=== PATIENT | male | born 1960 | race African-American/Black ===

== ENCOUNTER 2019-02-23 06:30 | Inpatient (IN) | payer BC ==
[2019-02-23 08:10] LABS: #Basophils 0.1 thou/uL (0.0-0.2); #Eosinphils 0.2 thou/uL (0.0-0.7); #Lymphocytes 1.8 thou/uL (1.20-3.40); #Monocytes 0.6 thou/uL (0.11-0.59); #Neutrophils 4.3 thou/uL (1.40-6.50); %Basophils 1.1 % (0.0-1.0); %Eosinophils 3.3 % (0.0-10.0); %Neutrophils 60.6 % (42.0-75.0); Hemoglobin 14.3 g/dL (14.0-18.0); Mean Corpuscular HGB CONC 33.9 g/dL (32.0-36.0); Mean Corpuscular Hemoglobin 30.7 pg (27.0-31.0); Mean Corpuscular Volume 90.6 fL (78.0-98.0); Mean Platelet Volume 7.4 fL (7.4-10.4); Platelet Count 257 thou/uL (130-400); RBC Distribution Width 11.1 % (11.5-14.5); Red Blood Cell (RBC) Count 4.67 mill/uL (4.70-6.10); White Blood Cell (WBC) Count 7.1 thou/uL (4.8-10.8)
[2019-02-23 08:23] LABS: Anion Gap 14 mmol/L (10-20); BUN (Urea Nitrogen) 16 mg/dL (8.4-25.7); Calc. Creatinine Clearance 188 mL/min (70-130); Calcium 9.4 mg/dL (7.8-10.44); Carbon Dioxide 25 mmol/L (22-29); Chloride 105 mmol/L (98-107); Estimated GFR-MDRD Greater than 90; Glucose 108 mg/dL (70-105); Potassium 4.3 mmol/L (3.5-5.1); Sodium 140 mmol/L (136-145)
[2019-02-23] MEDS ORDERED: Sodium Chloride 0.9% 10 ML ONE (08:44)
[2019-02-23] MEDS ORDERED: Fentanyl 100 MCG/2 ML VIAL ONE (09:03)
[2019-02-23] MEDS ORDERED: SUGAMMADEX SODIUM 200 MG/2 ML VIAL ONE (09:56)
[2019-02-23] MEDS ORDERED: SUGAMMADEX SODIUM 500 MG/5 ML VIAL ONE (09:57)
[2019-02-23] MEDS ORDERED: Promethazine HCl 25 MG/ML VIAL SLOW IVP PRN (10:25)
[2019-02-23] MEDS ORDERED: Meperidine HCl/PF 25 MG/ML VIAL SLOW IVP PRN (10:25)
[2019-02-23] MEDS ORDERED: HYDROmorphone 2 MG/ML VIAL SLOW IVP PRN (10:25)
[2019-02-23] MEDS ORDERED: Ondansetron HCl/PF 4 MG/2 ML Vial IVP PRN (10:25)
[2019-02-23] MEDS ORDERED: Lidocaine 1% PF 5 ML VIAL ONE (10:56)
[2019-02-23] MEDS ORDERED: PROPOFOL 200 MG/20 ML VIAL ONE (10:56)
[2019-02-23] MEDS ORDERED: Ondansetron PF 4 MG/2 ML Vial ONE (10:56)
[2019-02-23] MEDS ORDERED: Ketorolac Tromethamine 30 MG/ML VIAL ONE (10:56)
[2019-02-23] MEDS ORDERED: Rocuronium Bromide 10 MG/ML (10ML VIAL) ONE (10:56)
[2019-02-23] MEDS ORDERED: ePHEDrine/0.9% NaCl/PF SYRINGE 50 mg/10 ml ONE (10:56)
[2019-02-23] MEDS ORDERED: Dexamethasone 20 MG/5 ML VIAL ONE (10:56)
[2019-02-23] MEDS ORDERED: HYDROmorphone 2 MG/ML VIAL ONE (11:01)
[2019-02-23] MEDS ORDERED: Morphine 4 MG/ML VIAL SLOW IVP PRN (11:18)
[2019-02-23] MEDS ORDERED: HYDROcodone/Acetaminophen 10/325 mg Tablet PO PRN (11:18)
[2019-02-23] MEDS ORDERED: tiZANidine HCl 4 MG TAB PO PRN (11:18)
[2019-02-23] MEDS ORDERED: traMADol HCl 50 MG TAB PO PRN ×2 (11:18)
[2019-02-23] MEDS ORDERED: Milk Of Magnesia 30 ML UDCUP PO PRN (11:18)
[2019-02-23] MEDS ORDERED: Ondansetron PF 4 MG/2 ML Vial IM PRN (11:18)
[2019-02-23] MEDS ORDERED: diphenhydrAMINE 25 MG CAP PO PRN (11:18)
[2019-02-23] MEDS ORDERED: Promethazine 25 MG TAB PO PRN (11:18)
[2019-02-23] MEDS ORDERED: Promethazine HCl 12.5 MG SUPP PR PRN (11:18)
[2019-02-23] MEDS ORDERED: Mag-Al 1200 mg/1200 mg/30 ML UDCUP PO PRN (11:18)
[2019-02-23] MEDS ORDERED: Promethazine HCl 25 MG/ML VIAL IM PRN (11:18)
[2019-02-23] MEDS ORDERED: diphenhydrAMINE 50 MG/ML VIAL IVP PRN (11:18)
[2019-02-23] MEDS ORDERED: Morphine 2 MG/ML SYRINGE SLOW IVP PRN (11:19)
[2019-02-23] MEDS: HYDROcodone/Acetaminophen 10/325 mg Tablet PO PRN ×3 (13:31→22:34)
[2019-02-23] MEDS: Sodium Chloride 0.9% 1,000 ML IV SCH (13:32)
[2019-02-23 13:36] VITALS: BMI 39.2
--- NOTE | 2019-02-23 14:58 | OP ---
DATE OF PROCEDURE: 02/23/2019 SALESPERSON [employer]: Sarah Pedersen PA-C PROCEDURE PERFORMED: L4-L5 laminectomy, posterolateral arthrodesis, pedicle screw instrumentation, demineralized bone matrix and local morselized autograft, L4-L5. DESCRIPTION OF PROCEDURE: The patient was brought to the operating room and intubated. He was rolled in a prone position on gel-filled chest rolls. An incision was made exposing L4 and L5, and the level was confirmed by x-ray. We performed complete L5 and inferior L4 laminectomy, completely decompressing the neural elements. Next, pedicle screws were placed at right L4 and right L5 using lateral fluoroscopic guidance, and the position was confirmed by x-ray. The merlin was secured between the screws, connected by nuts, which were final tightened. The wound was then extensively irrigated, and MAC hemostasis was secured. A combination of demineralized bone matrix and local morselized autograft was laid over the lamina and posterolateral surfaces for the purpose of arthrodesis. Vancomycin powder was applied, and the wound was then closed in anatomic layers over drain. Job ID: [id number]
[2019-02-23] MEDS: CEFAZOLIN 2 GM in Premix Bag 1 BAG IVPB SCH ×2 (16:28→23:42)
[2019-02-24] MEDS: Sodium Chloride 0.9% 1,000 ML IV SCH ×2 (01:32→14:06)
[2019-02-24] MEDS: Tamsulosin HCl 0.4 MG CAP PO SCH (05:20)
[2019-02-24] MEDS: HYDROcodone/Acetaminophen 10/325 mg Tablet PO PRN ×4 (05:24→20:12)
[2019-02-24] MEDS: CEFAZOLIN 2 GM in Premix Bag 1 BAG IVPB SCH ×3 (07:49→23:55)
--- NOTE | 2019-02-24 08:47 | PRG ---
DATE OF SERVICE: 02/24/2019 SUBJECTIVE: The patient is a 58-year-old male, who underwent L4-L5 decompression and fusion on 02/23/2019. Following the surgery, he was transitioned to the Med/Surg floor, where his pain has been well controlled with p.o. medications. He is tolerating a regular diet, and he is voiding appropriately. He is currently postoperative day #1. He did have a JOSH output of 210 of serosanguineous fluid overnight. OBJECTIVE: GENERAL: On exam, this morning he is awake, alert, in no acute distress. He has free active range of motion of all extremities. No focal motor weakness. No incisional issues. Bandage is clean and dry. PLAN: We will continue to mobilize, monitor appropriately. Once the JOSH drain output trends down, I anticipate he will be able to go home in the next 1 to 2 days. I will call and check on JOSH output this afternoon. I anticipate he will need to stay additional night. Job ID: [id number]
[2019-02-25] MEDS: HYDROcodone/Acetaminophen 10/325 mg Tablet PO PRN ×3 (00:43→09:26)
[2019-02-25] MEDS: Sodium Chloride 0.9% 1,000 ML IV SCH ×2 (03:42→09:00)
[2019-02-25] MEDS: Tamsulosin HCl 0.4 MG CAP PO SCH (05:10)
[2019-02-25 08:10] VITALS: BP 109/69; TEMP 97.7
[2019-02-25] MEDS: CEFAZOLIN 2 GM in Premix Bag 1 BAG IVPB SCH (09:00)
--- NOTE | 2019-02-25 12:17 | DIS ---
DATE OF ADMISSION: 02/23/2019 DATE OF DISCHARGE: 02/25/2019 The patient is a 58-year-old male, who underwent L4-L5 decompression and fusion for lumbar stenosis and spondylolisthesis. Surgery date was 02/23/2019. Following the surgery, he was transitioned to the Med/Surg floor, where his pain was well controlled with p.o. medications, he was tolerating a regular diet, and he was voiding appropriately. He was ambulating up and down the hallways without any difficulty and not requiring any assistive devices. He did have a JOSH drain placed intraoperatively,, which trended down and was removed after postoperative day #2. The patient mobilized appropriately and was ready for discharge home on postoperative day #2. I discussed home care and precautions and will follow up with the patient in 2 weeks. He was provided with scripts for [facility], Zanaflex, and Keflex. Job ID: [id number]
--- NOTE | 2019-02-25 18:44 | EKG ---
Test Reason : PREOP Blood Pressure : / mmHG Vent. Rate : 061 BPM Atrial Rate : 061 BPM P-R Int : 172 ms QRS Dur : 108 ms QT Int : 408 ms P-R-T Axes : 053 -30 003 degrees QTc Int : 410 ms Normal sinus rhythm Left axis deviation Nonspecific ST and T wave abnormality Abnormal ECG No previous ECGs available Confirmed by DR. Kel BOYLE ([id number]) on 02/25/2019 6:43:57 PM Referred By: DONY Confirmed By:DR. Kel BOYLE
== END 2019-02-25 11:14 | disposition home or self-care (01) | DRG 460 ==
LOC: SDC 06:30 → SURG B 07:32 → OBSVTOIN 07:32
PROVIDERS: ADMIT Neurological Surgery; ATTEND Neurological Surgery
PROC: 0SG0071 Fusion of Lumbar Vertebral Joint with Autologous Tissue Substitute, Posterior Approach, Posterior Column, Open Approach (ICD-10-PCS; principal; 2019-02-23)
PROC: 01NB0ZZ Release Lumbar Nerve, Open Approach (ICD-10-PCS; 2019-02-23)
DX: M43.16 Spondylolisthesis, lumbar region (principal); M48.062 Spinal stenosis, lumbar region with neurogenic claudication; E78.5 Hyperlipidemia, unspecified; F17.210 Nicotine dependence, cigarettes, uncomplicated; J44.9 Chronic obstructive pulmonary disease, unspecified; J30.2 Other seasonal allergic rhinitis; H40.9 Unspecified glaucoma
CPT/HCPCS: 36415; 76000; 80048; 85025; 93005; 93010; C1713; C1768; J0131; J0690; J1100; J1170; J1885; J2001; J2405; J2704; J3010; J3370; J3490

== ENCOUNTER 2019-04-28 13:55 | Outpatient (CLI) | payer BC ==
--- NOTE | 2019-04-28 14:53 | RAD ---
LUMBAR SPINE 2 VIEWS: Date: 04/28/2019 HISTORY: Lumbar stenosis with claudication. Follow-up back surgery 02/23/2019. FINDINGS: Right-sided pedicle screws stabilize the L4 and L5 pedicle regions with minimal anterolisthesis and d isc osteophytosis with associated laminectomy changes at this level. No prior imaging available. IMPRESSION: Right-sided pedicle screws at L4 and L5 with postop laminectomy changes with mild anterolisthesis and disc osteophytosis. POS: OFF
== END 2019-04-28 13:56 | disposition home or self-care (01) ==
LOC: TBSIIMAG 13:55
PROVIDERS: ATTEND Neurological Surgery
DX: M48.062 Spinal stenosis, lumbar region with neurogenic claudication (principal); M43.16 Spondylolisthesis, lumbar region; M25.78 Osteophyte, vertebrae; Z98.890 Other specified postprocedural states
CPT/HCPCS: 72100

== ENCOUNTER 2019-06-30 15:04 | Outpatient (CLI) | payer BC ==
--- NOTE | 2019-06-30 15:46 | RAD ---
LUMBAR SPINE THREE VIEWS: 06/30/19 COMPARISON: 04/28/19. HISTORY: Prior surgery, spondylolisthesis, back soreness. FINDINGS: Right sided L4 and L5 pedicle screws are present with vertically oriented interlocking rods. No signi ficant anterolisthesis or retrolisthesis is noted. No evidence for hardware failure. Lower lumbar spi ne facet hypertrophy. There is disc space narrowing with anterior osteophyte formation at the L4-5 le chandni. IMPRESSION: Stable postoperative and degenerative change within the lumbar spine as detailed above. POS: [facility]
== END 2019-06-30 15:05 | disposition home or self-care (01) ==
LOC: TBSIIMAG 15:04
PROVIDERS: ATTEND Neurological Surgery
DX: M43.16 Spondylolisthesis, lumbar region (principal); M47.816 Spondylosis without myelopathy or radiculopathy, lumbar region; Z98.890 Other specified postprocedural states
CPT/HCPCS: 72100